=== PATIENT | female | born 1960 | race Two or more races ===

== ENCOUNTER 2017-04-14 06:07 | Day surgery (SDC) | payer OTHER ==
[~2017-04-14] VITALS: Ht 149.9 cm; Wt 53.2 kg
[2017-04-14] VITALS (12 sets, daily range): BP systolic 79–119; BP diastolic 40–76; PULSE 66–101; RESP 13–29; Ht 149.9 cm; Wt 53.2 kg
--- NOTE | 2017-04-14 05:52 | PREOPHP ---
DATE OF ADMISSION: 04/14/2017 HISTORY OF PRESENT ILLNESS: This is a 56-year-old lady, 4, para 3, with 1 spontaneous . Her last normal menstrual period was in 2016. She was admitted for D and C, hysteroscopy and suction curettage. She has been having on and off vaginal spotting for many months and getting worse up to the time of admission. She went to the emergency room for this problem. She had attempted endometrial biopsy, but the cervix was stenotic, so it could not be done. The procedures were explained to the patient and she understood everything totally. The risks, benefits, and alternatives were discussed with her as well. PAST MEDICAL HISTORY: No history of diabetes, TB, asthma. ALLERGIES: NONE. SOCIAL HISTORY: The patient does not smoke. She does not drink. She does not take any drugs. GYNECOLOGIC HISTORY: She had menarche at the age of 15, every 28 days interval, 3-4 days' duration and moderate in amount. FAMILY HISTORY: Father and sister have diabetes. Mother had high blood pressure and heart disease. PAST SURGICAL HISTORY: She had 3 C-sections. OBSTETRIC HISTORY: She is 6, para 3, with 3 C-sections. PHYSICAL EXAMINATION: GENERAL: Reveals a conscious, coherent lady, in no acute distress. VITAL SIGNS: Her blood pressure 130/80, pulse rate 80 per minute, respirations 16 per minute. BREASTS/HEART AND LUNGS: Within normal limits. ABDOMEN: Soft. No organomegaly. PELVIC: Exam revealed the cervix to be firm. Uterus upper limit of normal and adnexa were negative for masses. RECTAL: Exam confirmed the pelvic findings. EXTREMITIES: No pedal edema. ADMITTING DIAGNOSIS: Postmenopausal bleeding. PLAN: The patient was planned to have D and C, hysteroscopy and suction curettage. The procedures were explained to the patient and she understood everything totally. The risks, benefits, and alternatives were discussed with her as well. Dictated By: Romelia Todd MD /[email or web address] /Document#: [id number]
[2017-04-14] MEDS ORDERED: ONDANSETRON 4 MG INJ ONE (08:30)
[2017-04-14] MEDS ORDERED: PROPOFOL 20 ML ONE (08:30)
[2017-04-14] MEDS ORDERED: METOCLOPRAMIDE 10 MG INJ ONE (08:30)
[2017-04-14] MEDS ORDERED: MIDAZOLAM 1 MG/ML 2 ML INJ ONE (08:30)
[2017-04-14] MEDS ORDERED: KETOROLAC 30 MG INJ ONE (08:30)
[2017-04-14] MEDS ORDERED: ONDANSETRON 4 MG INJ IV PRN (09:00)
[2017-04-14] MEDS ORDERED: OXYCODONE/ACETAMINOPHEN (5/325) TAB PO PRN ×2 (09:00)
[2017-04-14] MEDS ORDERED: HYDROmorphONE (0.2 MG/ML) 10ML SYG IV PRN ×3 (09:00)
--- NOTE | 2017-04-14 09:06 | SIPON ---
Date/Time of Note Date/Time of Note DATE: 04/14/17 TIME: 09:03 Operative Report Preoperative Diagnosis postmenopausal bleeding Postoperative Diagnosis postmenepausal bleeding cervical polyp pending pathology Operation/Procedure Performed suction dilatation curettage hysteroscopy suction curettage endocervical polypectomy Surgeon see signature line printer assistant technology risk intern Anesthesia: general Estimated blood loss: minimal Transfusion Required none Specimen ecc emc suction curettage cervical polyp Grafts/Implants none Complications none MARY FLOWER MD Apr 14, 2017 09:06
[2017-04-14] MEDS ORDERED: EPHEDrine SULFATE 50 MG/5 ML SYG ONE (09:14)
[2017-04-14] MEDS ORDERED: ACETAMINOPHEN 325 MG TAB PO PRN (09:30)
--- NOTE | 2017-04-15 06:42 | OPR ---
DATE OF OPERATION: 04/14/2017 PREOPERATIVE DIAGNOSES: 1. Postmenopausal bleeding. 2. Fibroid uterus. POSTOPERATIVE DIAGNOSIS: Pending pathology report. SURGEON: Dr. Todd. OPTO MECHANICAL ENGINEER: Sky pabon. ANESTHESIA: General. OPERATION PERFORMED: Fractional dilatation and curettage, hysteroscopy and suction curettage. OPERATIVE PROCEDURE: Under general anesthesia, the patient was prepped and draped in the usual fashion for vaginal surgery. Pelvic exam under anesthesia revealed the cervix to be firm, uterus about 6 weeks' size, and adnexa were negative for masses. Then the heavyweight vaginal retractor was put in place and the anterior lip of the cervix was grasped with an Allis clamp and the cervical dilatation up to Hegar 6 was proceeded. Uterus was sounded to about 2-1/2 inches. Then the hysteroscope was inserted inside the uterine cavity and connected with the light source and distended with normal saline. There were no polyps nor fibroids seen. The cervical curettage was performed and a small amount of tissue was obtained. Endometrial curettage was performed and a small amount of tissue was obtained. Suction tip size 6 was inserted inside the uterine cavity and connected to the suction machine. Suction curettage was performed and good amount of tissue was obtained. The uterus was intact during and after the procedure. The patient tolerated the procedure well. Estimated blood loss was minimal. Vital signs were stable during and after the procedure. Dictated By: Romelia Todd MD /[email or web address] /Document#: [id number]
== END 2017-04-14 10:23 | disposition home or self-care (01) ==
LOC: SDS 06:07
PROVIDERS: ATTEND Obstetrics & Gynecology
DX: N95.0 Postmenopausal bleeding (principal); N84.1 Polyp of cervix uteri; N72 Inflammatory disease of cervix uteri
CPT/HCPCS: 58558; 84702; 86850; 86900; 86901; 88305; J1885; J2250; J2405; J2765; Z7512; Z7610

== ENCOUNTER 2017-09-14 07:40 | Day surgery (SDC) | END 2017-09-14 11:21 | disposition home or self-care (01) ==